=== PATIENT | female | born 2005 | race Caucasian/White ===

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

== ENCOUNTER 2025-02-07 09:11 | Outpatient (REF) | payer OTHER, SELFPAY ==
[2025-02-07 13:18] LABS: Bacterial Vaginosis PCR NEGATIVE (Negative); Candida Group PCR NOT DETECTED (Not Detect); Candida glab krusei PCR NOT DETECTED (Not Detect); Trichomonas vaginalis PCR NOT DETECTED (Not Detect)
[2025-02-07 17:00] LABS: CT PCR NOT DETECTED (Not Detect.); NG PCR NOT DETECTED (Not Detect.)
== END 2025-02-07 09:12 | disposition home or self-care (01) ==
LOC: HO.LNP 09:11
PROVIDERS: Visit Provider Obstetrics & Gynecology
DX: N76.0 Acute vaginitis (principal); N39.0 Urinary tract infection, site not specified
CPT/HCPCS: 81002; 81025; 81515; 87086; 87491; 87591; 99212

== ENCOUNTER 2025-02-07 09:11 | Outpatient (AMB) | payer OTHER, SELFPAY ==
--- NOTE | 2025-02-07 09:26 | A.OFFVIS_ITS ---
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 Present (Natalia PALACIO) Accompanied by: Mother Allergies No Known Allergies [No Known Allergies*] Allergy (Verified 02/07/25 09:28) Is last menstrual period known: Yes Last menstrual period: 01/15/25 HPI Comments Details: Presenting complaining of vulvovaginal discharge associated with burning on urination and urinary frequency, no foul odor PFSH Family History Mother Asthma Family/Other Ovarian cancer Uterus cancer Social History Household Members: Family Housing: House Alcohol intake: never Patient Tobacco Use Status: Never used Tobacco Current occupational status: student Female Reproductive History Menstrual Age of Menarche: 11 Duration of menses: 6-7 days Date of last menstrual period: 01/15/25 Review of Systems Const All systems reviewed & are unremarkable except as noted in HPI and below Physical Exam Vital Signs: Last Vital Signs BP 110/64 02/07/25 09:27 BMI result Body Mass Index 18.1 General: Yes no CVA tenderness External Female Exam: normal external appearance and normal appearance of the urethra Speculum Exam - Vagina: normal appearance of the vagina, normal palpation, no lesions and no masses Speculum Exam - Cervix: normal appearance of the cervix, normal palpation, no lesions, no masses and nontender Bimanual exam- vagina & uterus: normal bimanual exam, normal palpation, uterine size normal, normal palpation, uterine shape normal, No Cervical tenderness present and non-tender Bimanual Exam- Adnexa, other: normal adnexae Back/Spine/Pelvis Back: no CVA tenderness Assessment & Plan Assessment & Plan (1) Vulvovaginitis: Code(s): N76.0 - Acute vaginitis Category: Medical Plan: GC/CT, Bacterial Vaginosis panel taken, Terazol 0.8% q.h.s. for 3 days was sent to the patient's pharmacy. The patient was instructed to call if symptoms don't improve in 48 hours. (2) UTI (urinary tract infection): Code(s): N39.0 - Urinary tract infection, site not specified Category: Medical Plan: Urine test was negative, U dip done in the office and urine culture sent. Will treat with Macrobid 100 mg p.o. b.i.d. for 5 days. Instructions given the patient to a backup method for control for 2 weeks Orders: Orders CT NG by PCR Today N89.8 - Other specified noninflammatory disorders of vagina Bacterial Vaginosis Panel Today N89.8 - Other specified noninflammatory disorders of vagina Medications: New terconazole 0.8% 1 appful vaginal BEDTIME 20 grams 0RF 3 days nitrofurantoin monohyd/m-cryst 100 mg (Macrobid) 100 mg PO BID 10 caps 0RF 5 days Coding Level of Care Code Est Pt Level 3 (04457) Diagnoses Vulvovaginitis N76.0 UTI (urinary tract infection) N39.0
[2025-02-07 09:27] VITALS: BP 110/64; BMI 18.1
--- OUTSIDE RECORDS SUMMARY | 2025-02-07 09:37 | XMS_ITS | Encounter Summary ---
Author Organization [facility] Address [address] [place] [id number] Phone Care Team Providers Care Lead Person Name Role Phone Mariana Velázquez MD Primary Care Provider [phone] Reason for Visit * Reason Onset Date Comments OBGYN Referral 02/02/2025 Encounter Details Date Type Department Care Team ([facility] Contact Info) Description 02/02/2025 Telephone [facility] [place] [address] [place] [address] Mariana Velázquez MD [address] [place] [address] OBGYN Referral Social History Tobacco Use Types Packs/Day Years Used Date Smoking Tobacco: Never Assessed Hunger/Food Answer Date Recorded In the last 12 months, did y ou or your family ever eat less than you felt you should because there wasn't enough money for food? No 11/25/2023 Stable Housing Answer Date Recorded Are you worried that in the next 2 months you may not have stable housing? No 11/25/2023 Transportation Concerns Answer Date Rec orded In the last 12 months, have you or your family ever had to go without healthcare because you didn't have a way to get there? No 11/25/2023 Hazards in Home Answer Date Recorded Think about the place you li ve. Do you have problems with any of the following? Pests (mice or roaches), mold, no/not working smoke detectors, water leaks, no window guards. No 2023 Financing Utilities Answer Date Recorde d In the last 12 months, has t he electric, gas, oil, or water company threatened to shut off your services in your home? No 11/25/2023 Safety at Home Answer Date Recorded Are you or your family worried about feeling saf e in your home? No 11/25/2023 Outside Support Answer Date Recorded Do you feel that you need mo re support from other people or programs to help you care for yourself or your family? No 11/25/2023 Understanding Health Concerns Answer Da te Recorded Do you need help understandi ng your or your child's healthcare needs (diagnosis, medications, plan, etc.)? No 11/25/2023 Financing Health Concerns Answer Date R ecorded In the last 12 months, was t here a time when your child needed to see a doctor or get medications or supplies but could not because of cost? No 11/25/2023 Missing School or Work Answer Date Hiar rded Did you or your child miss s chool or work because of a health problem that could have been avoided? No 11/25/2023 Comments No Sex and Gender Information Value Date Recorded Sex Assigned at Female 11/25/2023 9:59 AM EDT Legal Sex Female 5:07 PM EDT Gender Identity Female 11/25/2023 9:59 AM EDT Sexual Orientation Straight 11/25/2023 9: 59 AM EDT documented as of this encounter Miscellaneous Notes * Telephone Encounter - Nicci Lam - 02/02/2025 2:51 PM EDT Mom and patient calling in requesting a referral to be placed to [facility]. They state [facility] states the referral must say annual exam as well as the symptoms the patient is currently experiencing: red, irritating, burning and itching in the vaginal area. If you agree will you please place the order. documented in this encounter Plan of Treatment Upcoming Encounters Date Type Department Care Team (Late st Contact Info) Description 02/19/2025 9:00 AM EDT Office Visit [facility] - [address] [address] Mariana Velázquez MD [address] [place] [address] [phone] documented as of this encounter Visit Diagnoses Not on filedocumented in this encounter Care Teams Lead Person Relationship Specialty Start Date End Date Mariana Velázquez MD [address] [place] [id number] PCP - General Pediatrics 12/27/23 documented as of this encounter
== END 2025-02-07 09:55 | disposition home or self-care (01) ==
LOC: HO.HWS 09:15
PROVIDERS: Visit Provider Obstetrics & Gynecology
DX: N76.0 Acute vaginitis (principal); N39.0 Urinary tract infection, site not specified; Z32.02 Encounter for pregnancy test, result negative
CPT/HCPCS: 99213